=== PATIENT | female | born 1985 | race Caucasian/White ===

== ENCOUNTER 2021-05-27 09:56 | Outpatient (CLI) | payer OTHER, SELFPAY ==
[2021-05-27 10:50] LABS: Basophils Percent Auto 0.5 % (0.2-1.2); Eosinophils Absolute Auto 0.2 K/mm3 (0-0.3); Eosinophils Percent Auto 2.3 % (0-4.4); Hematocrit 43.5 % (37.0-47.0); Hemoglobin 14.1 g/dL (12.0-15.0); Immature Granulocyte Absolute 0.02 K/mm3 (0.00-0.031); Immature Granulocyte Percent A 0.2 % (0-0.5); Lymphocytes Absolute Auto 1.95 K/mm3 (0.9-3.2); Lymphocytes Percent Auto 22.5 % (18.3-44.2); Mean Corpuscular HGB Conc 32.4 g/dl (32-36); Mean Corpuscular Hemoglobin 30.5 pg (26-34); Mean Platelet Volume 9.3 fl (7.4-10.4); Monocytes Absolute Auto 0.5 K/mm3 (0.1-0.6); Monocytes Percent Auto 5.7 % (2.6-8.5); Neutrophils Percent Auto 68.8 % (45.5-73.1); Platelet Count Result 350 k/mm3 (150-375); Red Blood Count 4.63 M/mm3 (4.2-5.4); Red Cell Distribution Width 12.5 % (11.5-14.5); White Blood Count 8.7 K/mm3 (4.5-10.0)
[2021-05-27 10:59] LABS: Alanine Aminotransferase 14 U/L (4-35); Albumin Level 4.5 g/dL (3.5-5.1); Alkaline Phosphatase 74 U/L (38-126); Anion Gap 7 mmol/L (8-16); Aspartate Amino Transferase 20 U/L (14-36); Bilirubin,Total 0.7 mg/dL (0.2-1.3); Blood Urea Nitrogen 12 mg/dL (7-17); Calcium 9.6 mg/dL (8.4-10.2); Carbon Dioxide 25 mmol/L (22-30); Chloride 106 mmol/L (98-107); Cholesterol 252 mg/dL (0-200); Estimated Glomerular Filt Rate > 60; Glucose 101 mg/dL (65-110); HDL Direct 77 mg/dL; Sodium 138 mmol/L (137-145); Triglycerides 184 mg/dL (<150)
[2021-05-27 11:10] LABS: LDL Cholesterol Direct 108 mg/dL
== END 2021-05-27 09:57 | disposition home or self-care (01) ==
PROVIDERS: PCP Internal Medicine; Visit Provider Nurse Practitioner
DX: Z13.228 Encounter for screening for other metabolic disorders (principal); Z13.220 Encounter for screening for lipoid disorders
CPT/HCPCS: 36415; 80053; 80061; 85025

== ENCOUNTER → 2023-02-02 10:43 | Outpatient (CLI) | payer BC, SELFPAY ==
--- NOTE | ~2023-02-02 | XR_ITS ---
AP view of the pelvis and AP and lateral views of the bilateral hips Clinical history: Pain Findings: No acute fracture or dislocation is seen. Osseous alignment is anatomic. There is mild to m oderate degenerative change of the left hip joint, with femoral head neck junction osteophytes presen t. Right hip joint is unremarkable. IUD in place. Impression: Mild to moderate left hip joint degenerative change. IUD in place. Reviewed, dictated and finalized at location M. Impression: Mild to moderate left hip joint degenerative change. IUD in place.
== END ==
PROVIDERS: PCP Internal Medicine; Visit Provider Nurse Practitioner Family
DX: M16.12 Unilateral primary osteoarthritis, left hip (principal); M25.551 Pain in right hip; Z97.5 Presence of (intrauterine) contraceptive device
CPT/HCPCS: 73521

== ENCOUNTER → 2023-03-03 11:00 | Outpatient (CLI) | payer BC, SELFPAY ==
--- NOTE | ~2023-03-03 | MR_ITS ---
EXAMINATION: MR pelvis wo con DATE: 03/03/2023 11:42 INDICATION: Spinal enthesopathy, lumbar region. Right buttock pain. TECHNIQUE: Magnetic resonance imaging (MRI) of the pelvis was performed without intravenous contrast. COMPARISON: Pelvis and right hip radiographs 02/02/2023 FINDINGS: Bone alignment is normal. No fracture. There is mild right hip osteoarthritis and moderate left hip o steoarthritis. No hip joint effusion. The gluteal tendons, iliopsoas tendons, and hamstring tendon or igins are normal. There is mild bilateral trochanteric bursitis. There is an intrauterine device in e xpected position. IMPRESSION: 1. Mild right hip osteoarthritis and moderate left hip osteoarthritis. Reviewed, dictated and finalized at location A.
== END ==
PROVIDERS: PCP Anesthesiology Pain Medicine; Visit Provider Anesthesiology Pain Medicine
DX: M46.06 Spinal enthesopathy, lumbar region (principal); M16.0 Bilateral primary osteoarthritis of hip
CPT/HCPCS: 72195

== ENCOUNTER 2024-02-24 14:05 | Outpatient (CLI) | payer BC, SELFPAY ==
--- NOTE | ~2024-02-24 | MR_ITS ---
EXAMINATION: MR ankle LT wo con DATE: 02/24/2024 14:48 INDICATION: Calcaneofibular ligament sprain with left ankle instability TECHNIQUE: Magnetic resonance imaging (MRI) of the left ankle was performed without intravenous contr ast. Sequences included sagittal, coronal, and axial proton-density weighted fast spin echo without a nd with fat saturation. COMPARISON: None. FINDINGS: Medial ankle ligaments: Deep and superficial deltoid ligaments as well as the spring ligament are normal. Lateral ankle ligaments: The anterior and posterior inferior tibiofibular and posterior talofibular ligaments are normal. Smal l heterotopic ossicle along the attenuated anterior talofibular ligament likely sequela of chronic sp rain. Chronic complete tear at the calcaneal side of the calcaneofibular ligament without surrounding edema to suggest acute injury. Tendons: Achilles tendon is normal. There is fluid in the tendon sheath surrounding the otherwise normal peron eus longus and brevis tendons consistent with mild tenosynovitis.. The tibialis anterior and extensor hallucis longus and extensor digitorum longus tendons are normal. The tibialis posterior, flexor dig itorum longus and flexor hallucis longus tendons are normal. Additional small amount of fluid consist ent with mild tenosynovitis extending along the tibialis posterior tendon. Plantar fascia: Moderate-sized plantar spur and mild thickening and increased signal at the calcaneal origin of the c entral component of the plantar aponeurosis consistent with chronic enthesopathy. Minimal increase in fluid signal at the enthesophyte and immediately surrounding soft tissues consistent with minimal pl elijah fasciitis. Bones/other: Bone alignment is normal. No fracture or pathologic marrow replacing process. The joint spaces and ca rtilage at the ankle, mid and hindfoot appear relatively preserved. Fluid: Physiologic amount fluid in the joint spaces. IMPRESSION: 1. 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 2. Peroneal and posterior tibial tenosynovitis with normal appearing tendons. 3. Minimal acute plantar fasciitis superimposed on changes of chronic enthesopathy. Reviewed, dictated and finalized at location A. IMPRESSION: 1. 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 2. Peroneal and posterior tibial tenosynovitis with normal appearing tendons. 3. Minimal acute plantar fasciitis superimposed on changes of chronic enthesopa thy.
== END 2024-02-24 14:06 ==
LOC: GOSHIMG 14:06
PROVIDERS: PCP Internal Medicine; Visit Provider Podiatrist Foot & Ankle Surgery
DX: S93.412A Sprain of calcaneofibular ligament of left ankle, initial encounter (principal); M66.372 Spontaneous rupture of flexor tendons, left ankle and foot; M25.572 Pain in left ankle and joints of left foot; X58.XXXA Exposure to other specified factors, initial encounter
CPT/HCPCS: 73721

== ENCOUNTER 2024-11-02 09:06 | Outpatient (CLI) | payer BC, SELFPAY ==
--- NOTE | ~2024-11-02 | XR_ITS ---
3 VIEWS LUMBAR SPINE Ordering provider: Lew Velarde, History: . Low back pain . Comparison: None. FINDINGS: VERTEBRAL BODIES:Compression fracture of T12 is noted most likely chronic. MRI evaluation advised. N o visible fracture or subluxation. DISK SPACES: Normal. SOFT TISSUES: Normal. IMPRESSION: Compression fracture of T12 most likely chronic. MRI evaluation advised. Otherwise, No acute osseous abnormality lumbar spine. Reviewed, dictated and finalized at location A. [facility] C[employer] IMPRESSION: Compression fracture of T12 most likely chronic. MRI evaluation advised. Otherw ise, No acute osseous abnormality lumbar spine.
== END 2024-11-02 09:07 | disposition home or self-care (01) ==
LOC: MICIMG 09:07
PROVIDERS: PCP Family Medicine; Visit Provider Family Medicine
DX: S22.080A Wedge compression fracture of T11-T12 vertebra, initial encounter for closed fracture (principal); X58.XXXA Exposure to other specified factors, initial encounter
CPT/HCPCS: 72110